=== PATIENT | male | born 1975 | race Two or more races ===

== ENCOUNTER 2016-11-08 20:29 | Emergency (ER) | payer OTHER, MEDICAID ==
[~2016-11-08] VITALS: Ht 182.9 cm; Wt 99.8 kg
[2016-11-08 21:10] LABS: Urine RBC None Seen /hpf (0 - 3)
[2016-11-08 21:22] LABS: Urine Bilirubin Negative (Negative); Urine Blood Negative /uL (Negative); Urine Color Yellow (Yellow); Urine Glucose 4+ mg/dL (Normal); Urine Hyaline Cast FEW /lpf (0 - 2); Urine Ketone Negative (Negative); Urine Mucus FEW (None Seen); Urine Nitrite Negative (Negative); Urine Squamous Epithelial Cell FEW /hpf (<5); Urine Urobilinogen Normal (Negative); Urine pH 5.5 (5.0-8.0)
[2016-11-09 00:04] LABS: Basophils # (auto) 0.1 uL; Eosinophils # (auto) 0.1 uL; Eosinophils % (auto) 0.9 % (0.0-7.0); Hematocrit 45.9 % (41.0-53.0); Hemoglobin 15.7 g/dL (13.5-17.5); Lymphocytes # (auto) 3.1 uL; Lymphocytes % (auto) 25.1 % (10.0-50.0); Mean Corpuscular Hemoglobin 29.6 pg (28.0-32.0); Mean Corpuscular Hgb Conc. 34.2 g/dL (32.0-36.0); Mean Corpuscular Volume 86.7 fL (80.0-100.0); Monocytes # (auto) 0.7 uL; Monocytes % (auto) 5.7 % (0.0-12.0); Neutrophils # (auto) 8.4 uL; Neutrophils % (auto) 67.3 % (37.0-80.0); Platelet Count (auto) 286 10^3/uL (140-450); Red Cell Distribution Width 13.3 % (11.8-14.3); White Blood Cell 12.5 10^3/uL (4.4-10.8)
[2016-11-09 00:27] LABS: Bilirubin, Total 0.4 mg/dL (0.2-1.0); Total Protein 7.3 g/dL (6.4-8.2)
[2016-11-09 00:31] LABS: BUN/Creatinine Ratio 12.9; Potassium 3.5 mmol/L (3.5-5.1)
[2016-11-09 00:32] LABS: Albumin 3.5 g/dL (3.4-5.0); Calcium 8.9 mg/dL (8.5-10.1)
[2016-11-09 00:44] LABS: B-Type Natriuretic Peptide 9.2 pg/mL (0-100); Temperature: 22.7 C (20.0-25.0)
[2016-11-09 01:32] VITALS: BP 107/63
== END 2016-11-09 02:56 | disposition home or self-care (01) ==
LOC: ER 20:39
DX: L03.031 Cellulitis of right toe (principal); D72.829 Elevated white blood cell count, unspecified; E11.9 Type 2 diabetes mellitus without complications; Z88.8 Allergy status to other drugs, medicaments and biological substances; Z86.73 Personal history of transient ischemic attack (TIA), and cerebral infarction without residual deficits
CPT/HCPCS: 36415; 73620; 73700; 80053; 81001; 83036; 83880; 85025

== ENCOUNTER 2020-12-11 16:46 | Inpatient (IN) | payer MEDICARE, OTHER ==
[~2020-12-11] VITALS: Ht 182.9 cm; Wt 91.5 kg
[~2020-12-11 16:46] MED LIST: HYDR-4833 PO; INSLISPI SC; PANT40TA2 PO
[2020-12-11] MEDS ORDERED: VANCOMYCIN 1GM/250ML 250 ML IV ONE (18:30)
[2020-12-11] MEDS ORDERED: PIPERACILLIN-TAZOB 3.375GM 100 ML IV ONE (18:30)
[2020-12-11 18:36] LABS: Basophils # (auto) 0.1 10 ^3/uL (0-0.2); Basophils % (auto) 0.6 % (0.0-2.0); Eosinophils # (auto) 0.1 10 ^3/uL (0-0.8); Eosinophils % (auto) 0.8 % (0.0-7.0); Hematocrit 41.2 % (41.0-53.0); Hemoglobin 13.7 g/dL (13.5-17.5); Lymphocytes # (auto) 1.9 10 ^3/uL (0.4-5.4); Lymphocytes % (auto) 15.9 % (10.0-50.0); Mean Corpuscular Hemoglobin 28.8 pg (28.0-32.0); Mean Corpuscular Hgb Conc. 33.4 g/dL (32.0-36.0); Mean Corpuscular Volume 86.5 fL (80.0-100.0); Monocytes # (auto) 0.7 10 ^3/uL (0-1.3); Monocytes % (auto) 5.9 % (0.0-12.0); Neutrophils # (auto) 9.1 10 ^3/uL (1.6-8.6); Neutrophils % (auto) 76.8 % (37.0-80.0); Nucleated Red Blood Cells % 0.1 %; Red Blood Cells 4.77 10^6/uL (4.5-5.90); Red Cell Distribution Width 12.3 % (11.8-14.3); White Blood Cell 11.8 10^3/uL (4.4-10.8)
[2020-12-11 18:41] LABS: Albumin 3.1 g/dL (3.4-5.0); BUN/Creatinine Ratio 13.9; Calcium 8.7 mg/dL (8.5-10.1)
[2020-12-11 18:43] LABS: Bilirubin, Total 0.5 mg/dL (0.2-1.0)
[2020-12-11 18:58] LABS: Potassium 2.8 mmol/L (3.5-5.1)
[2020-12-11] MEDS ORDERED: POTASSIUM EFFERVESENT TAB 25 MEQ PO STA (18:58)
[2020-12-11] MEDS ORDERED: LABETALOL HCL 5 MG/ML 4ML SYRINGE IV PRN (19:00)
[2020-12-11] MEDS ORDERED: MORPHINE SULFATE INJECTION 2 MG/ML SYRG IV ONE (19:00)
[2020-12-11] MEDS ORDERED: DOCUSATE CALCIUM 240 MG CAP PO PRN (19:00)
[2020-12-11] MEDS ORDERED: MORPHINE SULFATE INJECTION 2 MG/ML SYRG IV PRN (19:00)
[2020-12-11] MEDS ORDERED: ACETAMINOPHEN 500 MG TAB PO PRN (19:00)
[2020-12-11] MEDS ORDERED: NITROGLYCERIN 0.4 MG SL TAB SL PRN (19:00)
[2020-12-11] MEDS ORDERED: ONDANSETRON HCL 4 MG/2 ML VIAL IV PRN (19:00)
[2020-12-11] MEDS ORDERED: DEXTROSE (50%) 50ML SYRG IV PRN (19:00)
[2020-12-11] MEDS ORDERED: TETANUS-DIPTH-ACEL PERTUSSIS 0.5ML SYR Tdap IM ONE (19:00)
[2020-12-11] MEDS ORDERED: POTASSIUM CHLORIDE 40 MEQ in D5W/LACTATED RINGERS 1,000 ML IV SCH (19:15)
[2020-12-11] MEDS: InsuLIN REG 1unit/0.01ml Soln (100units/ml) SC SCH (20:00)
[2020-12-11] MEDS: ACCU-CHEK COMFORT CURVE STRIP VI SCH (20:00)
[2020-12-11] MEDS ORDERED: CLINDAMYCIN 300MG IV 50 ML IV SCH (22:00)
[2020-12-11] MEDS: INSULIN LANTUS (GLARGINE) 1 /0.01ml (100units/ml) SC SCH (22:00)
[2020-12-11] MEDS ORDERED: LORazepam 0.5 MG TAB PO PRN (22:00)
[2020-12-12] MEDS: PIPERACILLIN-TAZOB 3.375GM 100 ML IV SCH ×3 (01:11→12:02)
[2020-12-12 01:29] VITALS: BP 113/63
[2020-12-12] MEDS: ACCU-CHEK COMFORT CURVE STRIP VI SCH ×6 (04:00→20:00)
[2020-12-12] MEDS: InsuLIN REG 1unit/0.01ml Soln (100units/ml) SC SCH ×6 (04:00→20:00)
[2020-12-12 05:00] VITALS: BP 128/65
[2020-12-12] MEDS ORDERED: INSU100I2 SC (05:23)
[2020-12-12] MEDS ORDERED: INSU300I SC (05:23)
[2020-12-12] MEDS ORDERED: PERCOT PO ×2 (05:23)
[2020-12-12] MEDS ORDERED: SEMA4INJ SC (05:23)
[2020-12-12 06:53] LABS: Basophils # (auto) 0.1 10 ^3/uL (0-0.2); Basophils % (auto) 0.7 % (0.0-2.0); Eosinophils # (auto) 0.1 10 ^3/uL (0-0.8); Eosinophils % (auto) 1.3 % (0.0-7.0); Hematocrit 38.2 % (41.0-53.0); Hemoglobin 13.2 g/dL (13.5-17.5); Lymphocytes # (auto) 1.4 10 ^3/uL (0.4-5.4); Lymphocytes % (auto) 15.3 % (10.0-50.0); Mean Corpuscular Hemoglobin 29.5 pg (28.0-32.0); Mean Corpuscular Hgb Conc. 34.6 g/dL (32.0-36.0); Mean Corpuscular Volume 85.4 fL (80.0-100.0); Monocytes # (auto) 0.7 10 ^3/uL (0-1.3); Monocytes % (auto) 7.4 % (0.0-12.0); Neutrophils % (auto) 75.3 % (37.0-80.0); Red Blood Cells 4.48 10^6/uL (4.5-5.90); Red Cell Distribution Width 12.5 % (11.8-14.3); White Blood Cell 9.3 10^3/uL (4.4-10.8)
[2020-12-12 07:02] LABS: INR 1.05 (0.9-1.15)
[2020-12-12 07:04] LABS: Potassium 3.6 mmol/L (3.5-5.1)
[2020-12-12 07:08] LABS: Albumin 2.6 g/dL (3.4-5.0); BUN/Creatinine Ratio 10.9; Calcium 8.5 mg/dL (8.5-10.1)
[2020-12-12 07:11] LABS: Bilirubin, Total 0.3 mg/dL (0.2-1.0); Total Protein 5.5 g/dL (6.4-8.2)
[2020-12-12] MEDS: MORPHINE SULFATE 4 MG/ML SYR/VIAL IV PRN ×3 (07:24→20:32)
[2020-12-12 09:06] VITALS: BP 129/64
[2020-12-12] MEDS: ENOXAPARIN SOD 40 MG/0.4 ML SYRINGE SC SCH (10:30)
[2020-12-12] MEDS: PANTOPRAZOLE 40 MG TAB PO SCH (10:30)
[2020-12-12 13:00] VITALS: BP 113/62
[2020-12-12] MEDS ORDERED: VANCOMYCIN PER PHARMACY 0 MG IV SCH (15:30)
[2020-12-12] MEDS ORDERED: VANCOMYCIN 1GM/250ML 250 ML IV ONE (15:30)
[2020-12-12] MEDS: cefTRIAXone 1GM/50ML D5W 50 ML IV SCH (16:49)
[2020-12-12 16:59] VITALS: BP 125/62
[2020-12-12] MEDS: VANCOMYCIN 1GM/250ML 250 ML IV SCH (20:29)
[2020-12-12 22:00] VITALS: BP 119/66
[2020-12-12] MEDS: INSULIN LANTUS (GLARGINE) 1 /0.01ml (100units/ml) SC SCH (22:00)
[2020-12-13] MEDS: InsuLIN REG 1unit/0.01ml Soln (100units/ml) SC SCH ×7 (04:00→23:41)
[2020-12-13] MEDS: ACCU-CHEK COMFORT CURVE STRIP VI SCH ×5 (04:06→23:41)
[2020-12-13 05:00] VITALS: BP 101/54
[2020-12-13] MEDS: VANCOMYCIN 1GM/250ML 250 ML IV SCH ×2 (05:13→20:30)
[2020-12-13 05:40] LABS: Basophils # (auto) 0.1 10 ^3/uL (0-0.2); Basophils % (auto) 0.9 % (0.0-2.0); Eosinophils # (auto) 0.1 10 ^3/uL (0-0.8); Eosinophils % (auto) 1.2 % (0.0-7.0); Hematocrit 42.7 % (41.0-53.0); Hemoglobin 14.4 g/dL (13.5-17.5); Lymphocytes # (auto) 1.9 10 ^3/uL (0.4-5.4); Lymphocytes % (auto) 20.1 % (10.0-50.0); Mean Corpuscular Hemoglobin 29.4 pg (28.0-32.0); Mean Corpuscular Hgb Conc. 33.8 g/dL (32.0-36.0); Mean Corpuscular Volume 86.9 fL (80.0-100.0); Monocytes # (auto) 0.8 10 ^3/uL (0-1.3); Monocytes % (auto) 8.5 % (0.0-12.0); Neutrophils # (auto) 6.5 10 ^3/uL (1.6-8.6); Neutrophils % (auto) 69.3 % (37.0-80.0); Red Blood Cells 4.91 10^6/uL (4.5-5.90); Red Cell Distribution Width 12.4 % (11.8-14.3); White Blood Cell 9.4 10^3/uL (4.4-10.8)
[2020-12-13 08:54] VITALS: BP 132/83
[2020-12-13] MEDS: cefTRIAXone 1GM/50ML D5W 50 ML IV SCH (09:24)
[2020-12-13] MEDS: PANTOPRAZOLE 40 MG TAB PO SCH (09:25)
[2020-12-13] MEDS: ENOXAPARIN SOD 40 MG/0.4 ML SYRINGE SC SCH (09:25)
[2020-12-13] MEDS ORDERED: ceFAZolin 1GM VL ONE (11:13)
[2020-12-13] MEDS: ROPIVACAINE 0.5% (5MG/ML) 20ML AMPULE IJ ONE ×2 (11:14→11:40)
[2020-12-13] MEDS ORDERED: ONDANSETRON HCL 4 MG/2 ML VIAL ONE (11:14)
[2020-12-13] MEDS ORDERED: MIDAZOLAM HCL 2MG/2ML 2ml VIAL (1mg/ml) ONE (11:14)
[2020-12-13] MEDS ORDERED: GLYCOPYRROLATE 0.2 MG/ML 1ML VIAL ONE (11:14)
[2020-12-13] MEDS ORDERED: KETAMINE HCL 10 ML ONE (11:14)
[2020-12-13] MEDS ORDERED: HYDROmorphone HCL 2 MG/ML VL ONE (11:14)
[2020-12-13] MEDS ORDERED: PROPOFOL 10 MG/ML 20 ML IV ONE (11:14)
[2020-12-13] MEDS ORDERED: ceFAZolin 1GM/50ML 100 ML IV ONE (11:15)
[2020-12-13] MEDS: NEOMYCIN-BACITRACIN-POLYM 15GM TOP OINT TOP ONE ×2 (11:19→11:52)
[2020-12-13] MEDS ORDERED: KETOROLAC TROMETH 30 MG/ML 1ML VIAL ONE (12:25)
[2020-12-13] MEDS ORDERED: HYDROmorphone HCL 2 MG/ML VL IV PRN (12:30)
[2020-12-13] MEDS ORDERED: KETOROLAC TROMETH 30 MG/ML 1ML VIAL IV ONE (12:30)
[2020-12-13] MEDS ORDERED: ONDANSETRON HCL 4 MG/2 ML VIAL IV PRN (12:30)
[2020-12-13 17:00] VITALS: BP 123/70
[2020-12-13] MEDS: MORPHINE SULFATE 4 MG/ML SYR/VIAL IV PRN (17:07)
[2020-12-13] MEDS: INSULIN LANTUS (GLARGINE) 1 /0.01ml (100units/ml) SC SCH (21:45)
[2020-12-13 22:00] VITALS: BP 113/62
[2020-12-13] MEDS ORDERED: HYDROmorphone HCL 2 MG/ML VL IV ONE (23:15)
[2020-12-14 01:36] LABS: White Blood Cell 7.9 10^3/uL (4.4-10.8)
[2020-12-14 01:52] LABS: Basophils # (auto) 0.1 10 ^3/uL (0-0.2); Basophils % (auto) 0.9 % (0.0-2.0); Eosinophils # (auto) 0.2 10 ^3/uL (0-0.8); Hematocrit 41.4 % (41.0-53.0); Lymphocytes % (auto) 25.9 % (10.0-50.0); Mean Corpuscular Hemoglobin 29.8 pg (28.0-32.0); Mean Corpuscular Hgb Conc. 33.9 g/dL (32.0-36.0); Mean Corpuscular Volume 87.9 fL (80.0-100.0); Monocytes # (auto) 0.7 10 ^3/uL (0-1.3); Monocytes % (auto) 8.5 % (0.0-12.0); Neutrophils # (auto) 4.9 10 ^3/uL (1.6-8.6); Neutrophils % (auto) 62.7 % (37.0-80.0); Nucleated Red Blood Cells % 0.2 %; Red Blood Cells 4.71 10^6/uL (4.5-5.90); Red Cell Distribution Width 12.2 % (11.8-14.3)
[2020-12-14] MEDS: VANCOMYCIN 1GM/250ML 250 ML IV SCH ×2 (02:29→12:24)
[2020-12-14] MEDS: ACCU-CHEK COMFORT CURVE STRIP VI SCH ×4 (04:45→16:00)
[2020-12-14] MEDS: InsuLIN REG 1unit/0.01ml Soln (100units/ml) SC SCH ×4 (04:45→16:00)
[2020-12-14 05:00] VITALS: BP 107/64
[2020-12-14] MEDS: MORPHINE SULFATE 4 MG/ML SYR/VIAL IV PRN (06:20)
[2020-12-14] MEDS ORDERED: LIDOCAINE 1% (LOCAL ANESTH.) PF 5ml SDV ID ONE (08:45)
[2020-12-14 09:00] VITALS: BP 119/68
[2020-12-14] MEDS: PANTOPRAZOLE 40 MG TAB PO SCH (09:45)
[2020-12-14] MEDS: ENOXAPARIN SOD 40 MG/0.4 ML SYRINGE SC SCH (09:45)
[2020-12-14] MEDS: cefTRIAXone 1GM/50ML D5W 50 ML IV SCH (09:45)
[2020-12-14] MEDS ORDERED: SODIUM CHLOR 0.9% PF (SALINE LOCK) 10ML VIAL/SYR IV SCH (10:00)
[2020-12-14] MEDS: OXYCODONE W/ ACETAMINOPHEN 5/325MG TABLET PO PRN ×2 (12:54→20:28)
[2020-12-14 13:00] VITALS: BP 125/75
[2020-12-14 17:00] VITALS: BP 98/63
[2020-12-14] MEDS ORDERED: CEFT1INJ IV (17:44)
[2020-12-14] MEDS ORDERED: VAN1I IV (17:44)
[2020-12-14 19:32] VITALS: BP 123/60
== END 2020-12-14 21:00 | disposition home health service (06) | DRG 504 ==
LOC: ER 16:46 → OVERFLOW 18:52 → WEST WING 23:21
PROVIDERS: ADMIT Family Medicine; ATTEND Hospitalist
PROC: 0Y6X0Z0 Detachment at Right 5th Toe, Complete, Open Approach (ICD-10-PCS; principal; 2020-12-13 11:26)
PROC: 02HV33Z Insertion of Infusion Device into Superior Vena Cava, Percutaneous Approach (ICD-10-PCS; 2020-12-14)
DX: S92.501A Displaced unspecified fracture of right lesser toe(s), initial encounter for closed fracture (principal); M86.171 Other acute osteomyelitis, right ankle and foot; L03.031 Cellulitis of right toe; E11.69 Type 2 diabetes mellitus with other specified complication; Z20.822 Contact with and (suspected) exposure to COVID-19; L97.519 Non-pressure chronic ulcer of other part of right foot with unspecified severity; B95.61 Methicillin susceptible Staphylococcus aureus infection as the cause of diseases classified elsewhere; E11.621 Type 2 diabetes mellitus with foot ulcer; E87.6 Hypokalemia; E11.649 Type 2 diabetes mellitus with hypoglycemia without coma; I10 Essential (primary) hypertension; E11.42 Type 2 diabetes mellitus with diabetic polyneuropathy; W18.39XA Other fall on same level, initial encounter; E11.51 Type 2 diabetes mellitus with diabetic peripheral angiopathy without gangrene; Z83.3 Family history of diabetes mellitus; Z86.73 Personal history of transient ischemic attack (TIA), and cerebral infarction without residual deficits; Z88.8 Allergy status to other drugs, medicaments and biological substances; Y93.89 Activity, other specified; Y92.89 Other specified places as the place of occurrence of the external cause; Y99.8 Other external cause status; Z79.4 Long term (current) use of insulin
CPT/HCPCS: 36415; 36569; 71045; 73630; 73718; 80053; 80202; 82565; 82962; 83036; 83605; 84443; 85025; 85610; 87040; 87070; 87075; 87077; 87186; 87205; 87426; 90471; 90715; 93925; 96365; 96367; 96375; 99291; G0378; J0690; J0696; J1815; J1885; J2250; J2405; J2543; J2704; J3490

== ENCOUNTER 2020-12-22 18:26 | Emergency (ER) | payer OTHER ==
[~2020-12-22] VITALS: Ht 182.9 cm; Wt 86.2 kg
[~2020-12-22 18:26] MED LIST changes: +CEFT1INJ IV; -HYDR-4833 PO; -INSLISPI SC; +INSU100I2 SC; +INSU300I SC; +PERCOT PO; +SEMA4INJ SC; +VAN1I IV
[2020-12-22 21:35] VITALS: BP 102/69
== END 2020-12-22 20:52 | disposition home or self-care (01) ==
LOC: ER 18:27
DX: T82.898A Other specified complication of vascular prosthetic devices, implants and grafts, initial encounter (principal); E11.9 Type 2 diabetes mellitus without complications; Z86.73 Personal history of transient ischemic attack (TIA), and cerebral infarction without residual deficits; Z79.4 Long term (current) use of insulin; Z88.8 Allergy status to other drugs, medicaments and biological substances; Y92.89 Other specified places as the place of occurrence of the external cause
CPT/HCPCS: 71045

== ENCOUNTER 2020-12-23 11:06 | Emergency (ER) | payer OTHER ==
[~2020-12-23] VITALS: Ht 182.9 cm; Wt 86.2 kg
[2020-12-23 11:23] VITALS: BP 95/53
== END 2020-12-23 11:25 | disposition left against medical advice (07) ==
LOC: ER 11:06
DX: Z45.2 Encounter for adjustment and management of vascular access device (principal); Z53.21 Procedure and treatment not carried out due to patient leaving prior to being seen by health care provider

== ENCOUNTER 2020-12-25 07:46 | Emergency (ER) | payer OTHER ==
[~2020-12-25] VITALS: Ht 182.9 cm; Wt 86.2 kg
[2020-12-25 08:33] VITALS: BP 122/69
== END 2020-12-25 08:14 | disposition home or self-care (01) ==
LOC: ER 07:46
DX: T82.594A Other mechanical complication of infusion catheter, initial encounter (principal); E11.621 Type 2 diabetes mellitus with foot ulcer; L97.519 Non-pressure chronic ulcer of other part of right foot with unspecified severity; Z86.73 Personal history of transient ischemic attack (TIA), and cerebral infarction without residual deficits; Z79.4 Long term (current) use of insulin; Z79.2 Long term (current) use of antibiotics; Z79.899 Other long term (current) drug therapy; Z88.8 Allergy status to other drugs, medicaments and biological substances

== ENCOUNTER 2021-04-09 21:49 | Emergency (ER) | payer BC, OTHER ==
[~2021-04-09] VITALS: Ht 180.3 cm; Wt 81.6 kg
[2021-04-09] MEDS ORDERED: ONDANSETRON HCL 4 MG/2 ML VIAL IV ONE (22:45)
[2021-04-09] MEDS ORDERED: SODIUM CHLORIDE 0.9% 1,000 ML IV ONE (22:45)
[2021-04-09] MEDS ORDERED: InsuLIN REG 1unit/0.01ml Soln (100units/ml) IV ONE (22:45)
[2021-04-09 22:50] LABS: Basophils # (auto) 0.1 10 ^3/uL (0-0.2); Basophils % (auto) 1.1 % (0.0-2.0); Eosinophils # (auto) 0.1 10 ^3/uL (0-0.8); Eosinophils % (auto) 0.7 % (0.0-7.0); Hematocrit 46.8 % (41.0-53.0); Hemoglobin 16.3 g/dL (13.5-17.5); Lymphocytes # (auto) 3.2 10 ^3/uL (0.4-5.4); Mean Corpuscular Hemoglobin 29.3 pg (28.0-32.0); Mean Corpuscular Hgb Conc. 34.8 g/dL (32.0-36.0); Mean Corpuscular Volume 84.1 fL (80.0-100.0); Monocytes # (auto) 0.7 10 ^3/uL (0-1.3); Monocytes % (auto) 6.6 % (0.0-12.0); Neutrophils # (auto) 5.9 10 ^3/uL (1.6-8.6); Neutrophils % (auto) 59.6 % (37.0-80.0); Nucleated Red Blood Cells % 0.4 %; Red Blood Cells 5.56 10^6/uL (4.5-5.90); Red Cell Distribution Width 13.3 % (11.8-14.3)
[2021-04-09 23:08] LABS: Albumin 4.1 g/dL (3.4-5.0); Potassium 3.5 mmol/L (3.5-5.1)
[2021-04-09 23:12] LABS: Bilirubin, Total 0.6 mg/dL (0.2-1.0); Total Protein 7.9 g/dL (6.4-8.2)
[2021-04-09] MEDS ORDERED: PROMETHAZINE HCL 25 MG/ML 1ML IV ONE (23:15)
[2021-04-09] MEDS ORDERED: HYDROmorphone HCL 2 MG/ML VL IV ONE (23:15)
[2021-04-10 04:51] LABS: Urine Bacteria FEW /hpf (None Seen); Urine Blood Negative /uL (Negative); Urine Hyaline Cast FEW /lpf (0 - 2); Urine Mucus FEW (None Seen); Urine WBC 4 /hpf (0 - 3)
[2021-04-10 05:00] VITALS: BP 110/49
== END 2021-04-10 05:34 | disposition home or self-care (01) ==
LOC: ER 21:49
DX: N17.9 Acute kidney failure, unspecified (principal); E86.0 Dehydration; R10.84 Generalized abdominal pain; E11.9 Type 2 diabetes mellitus without complications; Z86.73 Personal history of transient ischemic attack (TIA), and cerebral infarction without residual deficits; Z79.4 Long term (current) use of insulin; Z79.899 Other long term (current) drug therapy; Z88.8 Allergy status to other drugs, medicaments and biological substances
CPT/HCPCS: 36415; 71045; 74176; 80053; 81001; 82010; 82962; 84484; 85025; 96361; 96374; 96375; 99285; J1170; J2550; J7030

== ENCOUNTER 2022-10-01 10:11 | Emergency (ER) | payer BC ==
[~2022-10-01] VITALS: Ht 182.9 cm; Wt 90.9 kg
[2022-10-01] MEDS ORDERED: HYDROcodone-ACET 10/325MG TAB PO ONE (11:15)
[2022-10-01] MEDS ORDERED: CEPH500C PO (11:58)
[2022-10-01 12:04] VITALS: BP 130/75; PULSE 90; RESP 18; O2SAT 98
== END 2022-10-01 12:06 | disposition home or self-care (01) ==
LOC: ER 10:11
DX: S90.822A Blister (nonthermal), left foot, initial encounter (principal); L84 Corns and callosities; E11.9 Type 2 diabetes mellitus without complications; Z86.73 Personal history of transient ischemic attack (TIA), and cerebral infarction without residual deficits; Z79.4 Long term (current) use of insulin; Z79.2 Long term (current) use of antibiotics; Z79.899 Other long term (current) drug therapy; Z88.8 Allergy status to other drugs, medicaments and biological substances; X58.XXXA Exposure to other specified factors, initial encounter; Y93.89 Activity, other specified; Y92.89 Other specified places as the place of occurrence of the external cause; Y99.8 Other external cause status
CPT/HCPCS: 73630

== ENCOUNTER 2023-02-28 11:45 | Inpatient (IN) | payer BC ==
[~2023-02-28] VITALS: Ht 182.9 cm; Wt 98.7 kg
[~2023-02-28 11:45] MED LIST changes: +CEPH500C PO
[2023-02-28 13:26] LABS: Basophils # (auto) 0.1 10 ^3/uL (0-0.2); Basophils % (auto) 0.9 % (0.0-2.0); Eosinophils # (auto) 0.1 10 ^3/uL (0-0.8); Eosinophils % (auto) 1.2 % (0.0-7.0); Hematocrit 42.3 % (41.0-53.0); Hemoglobin 14.2 g/dL (13.5-17.5); Lymphocytes # (auto) 2.1 10 ^3/uL (0.4-5.4); Lymphocytes % (auto) 23.2 % (10.0-50.0); Mean Corpuscular Hemoglobin 29.9 pg (28.0-32.0); Mean Corpuscular Hgb Conc. 33.6 g/dL (32.0-36.0); Monocytes # (auto) 0.5 10 ^3/uL (0-1.3); Monocytes % (auto) 5.6 % (0.0-12.0); Neutrophils # (auto) 6.4 10 ^3/uL (1.6-8.6); Neutrophils % (auto) 69.1 % (37.0-80.0); Red Blood Cells 4.75 10^6/uL (4.5-5.90); Red Cell Distribution Width 13.3 % (11.8-14.3); White Blood Cell 9.2 10^3/uL (4.4-10.8)
[2023-02-28 13:56] LABS: Alanine Aminotransferase 32 U/L (7-40); Alkaline Phosphatase 73 U/L (46-116); Anion Gap 4 (5-15); Aspartate Aminotransferase 22 U/L (13-40); BUN/Creatinine Ratio 10.6 (10.0-20.0); Blood Urea Nitrogen 12 mg/dL (9-23); CRP High Sensitivity 0.21 mg/dL (<1.0); Calcium 9.1 mg/dL (8.5-10.1); Carbon Dioxide 28 mmol/L (20-30); Chloride 111 mmol/L (98-107); Glucose 98 mg/dL (74-106); Potassium 4.7 mmol/L (3.5-5.1); Sodium 143 mmol/L (136-145)
[2023-02-28 13:57] LABS: Bilirubin, Total 0.3 mg/dL (0.2-1.0); Total Protein 6.1 g/dL (5.7-8.2)
[2023-02-28 14:15] LABS: Erythrocyte Sedimentation Rate 6 mm/hr (0-20)
[2023-02-28] MEDS ORDERED: CLINDAMYCIN 600MG IV 50 ML IV ONE (15:00)
[2023-02-28] MEDS ORDERED: ONDANSETRON HCL 4 MG/2 ML VIAL IV PRN (18:00)
[2023-02-28] MEDS ORDERED: VANCOMYCIN PER PHARMACY 0 MG IV SCH (18:00)
[2023-02-28] MEDS ORDERED: TEMAZEPAM 15 MG CAP PO PRN (18:00)
[2023-02-28] MEDS ORDERED: PIPERACILLIN-TAZOB 3.375GM 100 ML IV SCH (18:00)
[2023-02-28] MEDS ORDERED: DEXTROSE (50%) 50ML SYRG IV PRN (18:00)
[2023-02-28] MEDS ORDERED: ACETAMINOPHEN 325 MG TAB PO PRN (18:00)
[2023-02-28] MEDS ORDERED: PIPERACILLIN-TAZOB 3.375GM 100 ML IV ONE (18:30)
[2023-02-28] MEDS: SODIUM CHLORIDE 0.9% 1,000 ML IV SCH (18:31)
[2023-02-28] MEDS ORDERED: VANCOMYCIN 1GM/200ML 200 ML IV ONE (18:45)
[2023-02-28] MEDS: MORPHINE SULFATE INJ 2 MG/ml SYRG IV PRN (21:37)
[2023-02-28] MEDS: InsuLIN REG 1unit/0.01ml Soln (100units/ml) SC SCH (21:58)
[2023-02-28] MEDS: ASCORBIC ACID 500 MG TAB PO SCH (21:58)
[2023-02-28] MEDS: ACCU-CHEK COMFORT CURVE STRIP VI SCH (21:58)
[2023-02-28] MEDS: PIPERACILLIN-TAZOB 3.375GM 100 ML IV SCH (23:33)
[2023-03-01] MEDS: HYDROcodone-ACET 5/325MG TAB PO PRN ×3 (00:57→20:23)
[2023-03-01] MEDS: SODIUM CHLORIDE 0.9% 1,000 ML IV SCH ×4 (02:30→23:27)
[2023-03-01 02:38] VITALS: PULSE 73; RESP 13; O2SAT 95
[2023-03-01] MEDS: VANCOMYCIN 1GM/200ML 200 ML IV SCH ×2 (05:04→12:54)
[2023-03-01] MEDS: ACCU-CHEK COMFORT CURVE STRIP VI SCH ×4 (06:34→22:27)
[2023-03-01] MEDS: InsuLIN REG 1unit/0.01ml Soln (100units/ml) SC SCH ×4 (06:37→23:30)
[2023-03-01 06:53] LABS: Alanine Aminotransferase 26 U/L (7-40); Albumin 3.9 g/dL (3.2-4.8); Alkaline Phosphatase 69 U/L (46-116); Anion Gap 3 (5-15); Aspartate Aminotransferase 17 U/L (13-40); BUN/Creatinine Ratio 12.6 (10.0-20.0); Blood Urea Nitrogen 14 mg/dL (9-23); Calcium 9.1 mg/dL (8.5-10.1); Carbon Dioxide 28 mmol/L (20-30); Chloride 110 mmol/L (98-107); Glucose 73 mg/dL (74-106); Potassium 4.1 mmol/L (3.5-5.1); Sodium 141 mmol/L (136-145)
[2023-03-01 06:54] LABS: Bilirubin, Total 0.5 mg/dL (0.2-1.0); Total Protein 6.2 g/dL (5.7-8.2)
[2023-03-01 07:05] LABS: Basophils # (auto) 0.1 10 ^3/uL (0-0.2); Basophils % (auto) 0.9 % (0.0-2.0); Eosinophils # (auto) 0.2 10 ^3/uL (0-0.8); Eosinophils % (auto) 2.5 % (0.0-7.0); Hematocrit 43.3 % (41.0-53.0); Hemoglobin 14.5 g/dL (13.5-17.5); Lymphocytes # (auto) 3.1 10 ^3/uL (0.4-5.4); Lymphocytes % (auto) 32.7 % (10.0-50.0); Mean Corpuscular Hemoglobin 29.5 pg (28.0-32.0); Mean Corpuscular Hgb Conc. 33.5 g/dL (32.0-36.0); Mean Corpuscular Volume 88.1 fL (80.0-100.0); Monocytes % (auto) 10.2 % (0.0-12.0); Neutrophils % (auto) 53.7 % (37.0-80.0); Nucleated Red Blood Cells % 0.1 %; Red Blood Cells 4.92 10^6/uL (4.5-5.90); Red Cell Distribution Width 12.9 % (11.8-14.3); White Blood Cell 9.4 10^3/uL (4.4-10.8)
[2023-03-01] MEDS: PIPERACILLIN-TAZOB 3.375GM 100 ML IV SCH ×2 (07:51→12:00)
[2023-03-01 08:34] VITALS: RESP 15; O2SAT 98
[2023-03-01] MEDS: MORPHINE SULFATE INJ 2 MG/ml SYRG IV PRN ×3 (08:43→22:26)
[2023-03-01] MEDS: ZINC SULFATE 220mg CAP or TAB PO SCH (09:45)
[2023-03-01] MEDS: ASCORBIC ACID 500 MG TAB PO SCH ×2 (09:45→22:22)
[2023-03-01] MEDS: ENOXAPARIN SOD 40 MG/0.4 ML SYRINGE SC SCH (09:45)
[2023-03-01] MEDS ORDERED: ATOR10TA PO (12:39)
[2023-03-01] MEDS ORDERED: SEMA1INJ2 SC (12:47)
[2023-03-01] MEDS ORDERED: OXYC325T10 PO (12:47)
[2023-03-01 19:35] VITALS: PULSE 68; RESP 18; O2SAT 95
[2023-03-01 21:17] VITALS: BP 120/62; PULSE 69; TEMP 97.7; O2SAT 97
[2023-03-01] MEDS ORDERED: BACL20TA PO (21:24)
[2023-03-01] MEDS ORDERED: POTA10TA51 PO (21:24)
[2023-03-01] MEDS ORDERED: MELO-335 PO (21:24)
[2023-03-01] MEDS ORDERED: INSU100I4 SC (21:24)
[2023-03-01] MEDS ORDERED: ASPI-628 PO (21:24)
[2023-03-01] MEDS: ceFAZolin 2 GM/D5W100ml 100 ML IV SCH (23:27)
[2023-03-02] VITALS (7 sets, daily range): BP systolic 98–132; BP diastolic 51–72; PULSE 62–86; RESP 14–22; TEMP 97.9–98.6; O2SAT 95–99
[2023-03-02] MEDS: ceFAZolin 2 GM/D5W100ml 100 ML IV SCH ×3 (06:14→21:48)
[2023-03-02] MEDS: ACCU-CHEK COMFORT CURVE STRIP VI SCH ×4 (06:16→21:50)
[2023-03-02] MEDS: InsuLIN REG 1unit/0.01ml Soln (100units/ml) SC SCH ×4 (06:16→21:50)
[2023-03-02] MEDS: SODIUM CHLORIDE 0.9% 1,000 ML IV SCH ×2 (10:17→23:57)
[2023-03-02] MEDS: ZINC SULFATE 220mg CAP or TAB PO SCH (10:19)
[2023-03-02] MEDS: ENOXAPARIN SOD 40 MG/0.4 ML SYRINGE SC SCH (10:19)
[2023-03-02] MEDS: ASCORBIC ACID 500 MG TAB PO SCH ×2 (10:19→21:48)
[2023-03-02] MEDS: PROMETHAZINE HCL 25 MG/ML 1ML IV PRN (14:12)
[2023-03-02] MEDS: MORPHINE SULFATE INJ 2 MG/ml SYRG IV PRN ×2 (18:02→18:40)
[2023-03-02] MEDS: HYDROcodone-ACET 5/325MG TAB PO PRN (20:19)
[2023-03-03] MEDS: MORPHINE SULFATE INJ 2 MG/ml SYRG IV PRN (04:38)
[2023-03-03 05:22] VITALS: BP 146/76; PULSE 72; RESP 18; TEMP 98; O2SAT 97
[2023-03-03] MEDS: ceFAZolin 2 GM/D5W100ml 100 ML IV SCH (05:35)
[2023-03-03] MEDS: ACCU-CHEK COMFORT CURVE STRIP VI SCH ×2 (06:56→11:30)
[2023-03-03] MEDS: InsuLIN REG 1unit/0.01ml Soln (100units/ml) SC SCH ×2 (06:57→11:30)
[2023-03-03 08:00] VITALS: RESP 16; O2SAT 95
[2023-03-03] MEDS: ZINC SULFATE 220mg CAP or TAB PO SCH (08:30)
[2023-03-03] MEDS: ASCORBIC ACID 500 MG TAB PO SCH (08:30)
[2023-03-03] MEDS: SODIUM CHLORIDE 0.9% 1,000 ML IV SCH ×2 (08:39→12:40)
[2023-03-03] MEDS: PROMETHAZINE HCL 25 MG/ML 1ML IV PRN (08:39)
[2023-03-03] MEDS: ENOXAPARIN SOD 40 MG/0.4 ML SYRINGE SC SCH (08:43)
[2023-03-03 09:00] VITALS: BP 115/53; PULSE 71; RESP 18; TEMP 98; O2SAT 95
[2023-03-03] MEDS ORDERED: CEPH500C PO (10:22)
[2023-03-03] MEDS: HYDROcodone-ACET 5/325MG TAB PO PRN (11:27)
[2023-03-03 13:00] VITALS: BP 134/70; PULSE 89; RESP 19; TEMP 98.6; O2SAT 95
== END 2023-03-03 14:30 | disposition home or self-care (01) | DRG 603 ==
LOC: ER 11:45 → OVERFLOW 17:58 → CENTRAL 03-01 21:07
PROVIDERS: ADMIT Internal Medicine; ATTEND Internal Medicine
DX: L03.115 Cellulitis of right lower limb (principal); E11.42 Type 2 diabetes mellitus with diabetic polyneuropathy; E78.5 Hyperlipidemia, unspecified; Z89.421 Acquired absence of other right toe(s); Z88.8 Allergy status to other drugs, medicaments and biological substances; Z83.3 Family history of diabetes mellitus; Z86.73 Personal history of transient ischemic attack (TIA), and cerebral infarction without residual deficits
CPT/HCPCS: 36415; 73630; 80053; 82962; 83036; 83605; 83880; 84484; 84550; 85025; 85652; 86141; 87040; 93971; G0378; J1815; J2405; J2543; J3490

== ENCOUNTER 2023-03-29 16:24 | Inpatient (IN) | payer BC ==
[~2023-03-29] VITALS: Ht 182.9 cm; Wt 94.7 kg
[~2023-03-29 16:24] MED LIST changes: +ASPI-628 PO; +ATOR10TA PO; +BACL20TA PO; -CEFT1INJ IV; -INSU100I2 SC; +INSU100I4 SC; +MELO-335 PO; +OXYC325T10 PO; -PANT40TA2 PO; -PERCOT PO; +POTA10TA51 PO; +SEMA1INJ2 SC; -SEMA4INJ SC; -VAN1I IV
[2023-03-29 17:34] LABS: Basophils # (auto) 0.1 10 ^3/uL (0-0.2); Basophils % (auto) 0.4 % (0.0-2.0); Eosinophils # (auto) 0.1 10 ^3/uL (0-0.8); Eosinophils % (auto) 0.4 % (0.0-7.0); Hematocrit 50.7 % (41.0-53.0); Hemoglobin 17.4 g/dL (13.5-17.5); Lymphocytes # (auto) 4.3 10 ^3/uL (0.4-5.4); Lymphocytes % (auto) 21.8 % (10.0-50.0); Mean Corpuscular Hemoglobin 29.4 pg (28.0-32.0); Mean Corpuscular Hgb Conc. 34.3 g/dL (32.0-36.0); Mean Corpuscular Volume 85.8 fL (80.0-100.0); Monocytes # (auto) 1.1 10 ^3/uL (0-1.3); Monocytes % (auto) 5.5 % (0.0-12.0); Neutrophils # (auto) 14.2 10 ^3/uL (1.6-8.6); Neutrophils % (auto) 71.9 % (37.0-80.0); Nucleated Red Blood Cells % 0.2 %; Red Blood Cells 5.91 10^6/uL (4.5-5.90); Red Cell Distribution Width 12.6 % (11.8-14.3); White Blood Cell 19.8 10^3/uL (4.4-10.8)
[2023-03-29 17:54] LABS: Alanine Aminotransferase 33 U/L (7-40); Albumin 4.7 g/dL (3.2-4.8); Alkaline Phosphatase 86 U/L (46-116); Anion Gap 11 (5-15); Aspartate Aminotransferase 10 U/L (13-40); BUN/Creatinine Ratio 13.2 (10.0-20.0); Bilirubin, Total 0.8 mg/dL (0.2-1.0); Blood Urea Nitrogen 17 mg/dL (9-23); Calcium 10.1 mg/dL (8.7-10.4); Carbon Dioxide 34 mmol/L (20-30); Chloride 91 mmol/L (98-107); Glucose 108 mg/dL (74-106); Magnesium 2.3 mg/dL (1.6-2.6); Potassium 3.3 mmol/L (3.5-5.1); Sodium 136 mmol/L (136-145); Total Protein 7.2 g/dL (5.7-8.2)
[2023-03-29 17:57] LABS: Lactic Acid w/Reflex 5.5 mmol/L (0.4-2.0)
[2023-03-29 19:18] LABS: Urine Bacteria NONE SEEN /hpf (None Seen); Urine Blood Negative /uL (Negative); Urine Clarity Clear (Clear); Urine Color Colorless (Yellow); Urine Protein, UAD Negative (Negative); Urine Specific Gravity 1.035 (1.001-1.035); Urine Urobilinogen Normal (Negative); Urine WBC 1 /hpf (0 - 3)
[2023-03-29] MEDS ORDERED: ACETAMINOPHEN 325 MG TAB PO PRN (23:15)
[2023-03-29] MEDS ORDERED: MORPHINE SULFATE INJ 2 MG/ml SYRG IV PRN ×2 (23:15)
[2023-03-29] MEDS ORDERED: NITROGLYCERIN 0.4 MG SL TAB SL PRN (23:15)
[2023-03-29] MEDS ORDERED: DEXTROSE (50%) 50ML SYRG IV PRN (23:15)
[2023-03-29] MEDS ORDERED: DOCUSATE SOD 100 MG CAP PO PRN (23:15)
[2023-03-30] MEDS: IOHEXOL 350 MG/ML 100ML IJ ONE (00:22)
[2023-03-30] MEDS: ONDANSETRON HCL 4 MG/2 ML VIAL IV ONE (00:25)
[2023-03-30] MEDS: SODIUM CHLORIDE 0.9% 1,000 ML IV ONE ×3 (00:26→01:23)
[2023-03-30] MEDS: PIPERACILLIN-TAZOB 3.375GM 100 ML IV ONE (00:26)
[2023-03-30] MEDS: ONDANSETRON HCL 4 MG/2 ML VIAL IV PRN (00:26)
[2023-03-30 03:01] VITALS: PULSE 93; RESP 15; O2SAT 98
[2023-03-30 06:00] LABS: Basophils # (auto) 0.1 10 ^3/uL (0-0.2); Basophils % (auto) 0.5 % (0.0-2.0); Eosinophils # (auto) 0.2 10 ^3/uL (0-0.8); Eosinophils % (auto) 0.9 % (0.0-7.0); Hematocrit 43.6 % (41.0-53.0); Hemoglobin 14.8 g/dL (13.5-17.5); Lymphocytes % (auto) 22.9 % (10.0-50.0); Mean Corpuscular Hemoglobin 29.5 pg (28.0-32.0); Mean Corpuscular Hgb Conc. 34.1 g/dL (32.0-36.0); Mean Corpuscular Volume 86.6 fL (80.0-100.0); Monocytes # (auto) 1.3 10 ^3/uL (0-1.3); Monocytes % (auto) 7.6 % (0.0-12.0); Neutrophils # (auto) 11.9 10 ^3/uL (1.6-8.6); Neutrophils % (auto) 68.1 % (37.0-80.0); Red Blood Cells 5.03 10^6/uL (4.5-5.90); Red Cell Distribution Width 12.7 % (11.8-14.3); White Blood Cell 17.5 10^3/uL (4.4-10.8)
[2023-03-30 06:08] LABS: Chloride 96 mmol/L (98-107); Potassium 2.6 mmol/L (3.5-5.1); Sodium 134 mmol/L (136-145)
[2023-03-30 06:09] LABS: Anion Gap 6 (5-15); Carbon Dioxide 32 mmol/L (20-30)
[2023-03-30 06:10] LABS: Calcium 8.5 mg/dL (8.7-10.4)
[2023-03-30 06:14] LABS: BUN/Creatinine Ratio 11.8 (10.0-20.0); Blood Urea Nitrogen 11 mg/dL (9-23); Glucose 144 mg/dL (74-106)
[2023-03-30] MEDS: PIPERACILLIN-TAZOB 3.375GM 100 ML IV SCH (08:01)
[2023-03-30] MEDS: ENOXAPARIN SOD 40 MG/0.4 ML SYRINGE SC SCH (08:01)
[2023-03-30] MEDS: POTASSIUM CHL 20 Meq TABLET PO ONE ×2 (08:01→11:16)
[2023-03-30] MEDS: PANTOPRAZOLE 40 MG/10 ML VIAL INJ IV SCH (08:01)
[2023-03-30] MEDS: InsuLIN REG 1unit/0.01ml Soln (100units/ml) SC SCH (08:11)
[2023-03-30] MEDS: ACCU-CHEK COMFORT CURVE STRIP VI SCH (08:13)
[2023-03-30 08:14] VITALS: PULSE 97; RESP 20; O2SAT 97
[2023-03-30] MEDS: POTASSIUM CHLORIDE 20 MEQ, LIDOCAINE 1% (LOCAL ANESTH.) 2 ML in SODIUM CHL 0.9% 100 ML IV ONE (11:20)
[2023-03-30 16:55] VITALS: BP_SYST 124; BP_SYST 125; BP_DIAS 5; BP_DIAS 69; PULSE 96; PULSE 98; RESP 20; TEMP 97.6; TEMP 97.8; O2SAT 98
[2023-03-30] MEDS: HYDROcodone-ACET 5/325MG TAB PO PRN (17:41)
[2023-03-30] MEDS ORDERED: PIO30T PO (18:59)
[2023-03-30] MEDS ORDERED: GLIP5TAB12 PO (18:59)
[2023-03-30 20:00] VITALS: PULSE 102
[2023-03-30 22:00] VITALS: BP 119/66; PULSE 95; RESP 16; TEMP 98; O2SAT 94
[2023-03-31 05:00] VITALS: BP 132/79; PULSE 64; RESP 16; TEMP 98.3; O2SAT 98
[2023-03-31 07:21] LABS: Anion Gap 6 (5-15); Calcium 8.9 mg/dL (8.5-10.1); Carbon Dioxide 31 mmol/L (20-30); Chloride 101 mmol/L (98-107); Potassium 3.3 mmol/L (3.5-5.1); Sodium 138 mmol/L (136-145)
[2023-03-31 07:27] LABS: BUN/Creatinine Ratio 8.1 (10.0-20.0); Blood Urea Nitrogen 10 mg/dL (9-23)
[2023-03-31 07:29] LABS: Basophils # (auto) 0.1 10 ^3/uL (0-0.2); Basophils % (auto) 0.8 % (0.0-2.0); Eosinophils # (auto) 0.3 10 ^3/uL (0-0.8); Eosinophils % (auto) 2.4 % (0.0-7.0); Glucose 253 mg/dL (74-106); Hematocrit 42.1 % (41.0-53.0); Hemoglobin 14.2 g/dL (13.5-17.5); Lymphocytes # (auto) 2.9 10 ^3/uL (0.4-5.4); Lymphocytes % (auto) 24.5 % (10.0-50.0); Mean Corpuscular Hemoglobin 29.5 pg (28.0-32.0); Mean Corpuscular Hgb Conc. 33.7 g/dL (32.0-36.0); Mean Corpuscular Volume 87.6 fL (80.0-100.0); Monocytes # (auto) 0.8 10 ^3/uL (0-1.3); Neutrophils # (auto) 7.7 10 ^3/uL (1.6-8.6); Neutrophils % (auto) 65.3 % (37.0-80.0); Nucleated Red Blood Cells % 0.2 %; Red Blood Cells 4.81 10^6/uL (4.5-5.90); Red Cell Distribution Width 12.6 % (11.8-14.3); White Blood Cell 11.8 10^3/uL (4.4-10.8)
[2023-03-31 08:00] VITALS: BP 128/66; PULSE 86; PULSE 94; RESP 20; TEMP 98.6; O2SAT 95
[2023-03-31 09:00] VITALS: BP 128/66; PULSE 86; RESP 20; TEMP 98.6; O2SAT 95
== END 2023-03-31 12:30 | disposition left against medical advice (07) | DRG 638 ==
LOC: ER 16:24 → TELE 23:15 → TELE-WESTW 03-30 16:30
PROVIDERS: ADMIT Nurse Practitioner Family; ATTEND Hospitalist
DX: E11.65 Type 2 diabetes mellitus with hyperglycemia (principal); E87.20 Acidosis, unspecified; K52.9 Noninfective gastroenteritis and colitis, unspecified; D72.829 Elevated white blood cell count, unspecified; E86.0 Dehydration; Z53.29 Procedure and treatment not carried out because of patient's decision for other reasons; E87.6 Hypokalemia; Z86.73 Personal history of transient ischemic attack (TIA), and cerebral infarction without residual deficits; Z89.431 Acquired absence of right foot; Z88.8 Allergy status to other drugs, medicaments and biological substances; Z90.49 Acquired absence of other specified parts of digestive tract
CPT/HCPCS: 36415; 71045; 74177; 80048; 80053; 81001; 82010; 82962; 83605; 83735; 84132; 84484; 85025; 87040; C9113; G0378; J1815; J2001; J2405; J2543